=== PATIENT | female | born 2000 | race Caucasian/White ===

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

== ENCOUNTER 2021-12-20 18:15 | Inpatient (IN) | payer BC ==
[2021-12-20] MEDS ORDERED: IBUPROFEN 400 MG TAB PO STA (19:11)
[2021-12-20] MEDS ORDERED: ACETAMINOPHEN TAB 325 MG TAB PO STA (19:11)
[2021-12-20] MEDS ORDERED: SODIUM CHLORIDE 0.9% 1,000 ML IV STA (19:11)
--- NOTE | 2021-12-20 19:17 | ED ---
General Adult HPI - General Chief complaint: Shortness of Breath Stated complaint: SOB Time Seen by Provider: 12/20/21 19:00 Source: patient, family, RN notes reviewed, old records reviewed Mode of arrival: ambulatory Limitations: no limitations - History of Present Illness Initial comments: Physical well-appearing 21-year-old female that presents to the emergency room with complaints of cough, nausea and fever for 9 days. She had her tonsils removed 3 weeks ago. States that she went to follow up appointment with her ENT is complaining of some left-sided rib pain and cough was put her on Zithromax which she finished yesterday. Patient states she developed a worsening cough with fever and chills today. She did go to urgent care and they did an x-ray stating that she should come to the emergency room for evaluation for pneumonia. She states they tested her for influenza and was negative she does not believe she has coronavirus. She has had a history of asthma. She does take control pills. She is a nonsmoker. -: days(s) (1) Location: chest Radiation: non-radiation Severity scale (1-10): 6 Quality: constant Consistency: constant Improves with: none Worsens with: other (cough) Associated Symptoms: fever/chills, nausea/vomiting, shortness of breath Treatments Prior to Arrival: other (Urgent care) - Related Data Home Medications Medication Instructions Recorded Confirmed Azithromycin [Zithromax] 500 mg PO DAILY 12/20/21 12/20/21 Norgestimate-Ethinyl Estradiol 1 tab PO HS 12/20/21 12/20/21 [Sprintec 28 Day Tablet] Allergies Allergy/AdvReac Type Severity Reaction Status Date / Time No Known Allergies Allergy Verified 12/20/21 20:26 Review of Systems ROS Statement: Those systems with pertinent positive or pertinent negative responses have been documented in the HPI. ROS Other: All systems not noted in ROS Statement are negative. Past Medical History Past Medical History: Asthma History of Any Multi-Drug Resistant Organisms: None Reported Past Surgical History: Tonsillectomy Past Psychological History: No Psychological Hx Reported Smoking Status: Never smoker Past Alcohol Use History: Occasional Past Drug Use History: None Reported General Exam Limitations: no limitations General appearance: alert, in no apparent distress Head exam: Present: atraumatic, normocephalic, normal inspection Eye exam: Present: normal appearance. Absent: scleral icterus, conjunctival injection, periorbital swelling ENT exam: Present: normal exam, normal oropharynx, mucous membranes moist Expanded Throat exam: negative: tonsillar erythema, tonsillomegaly, tonsillar exudate, R peritonsillar mass, L peritonsillar mass Neck exam: Present: normal inspection, full ROM. Absent: tenderness, meningismus, lymphadenopathy, thyromegaly Respiratory exam: Present: decreased breath sounds (Diminished at bases). Absent: respiratory distress, wheezes, rales, rhonchi, stridor, chest wall tenderness, accessory muscle use Cardiovascular Exam: Present: tachycardia, normal heart sounds GI/Abdominal exam: Present: soft. Absent: distended, tenderness Extremities exam: Present: normal capillary refill. Absent: pedal edema Back exam: Present: normal inspection, full ROM. Absent: tenderness, CVA tenderness (R), CVA tenderness (L), rash noted Neurological exam: Present: alert, oriented X3, CN II-XII intact, normal gait Psychiatric exam: Present: anxious (Tearful) Skin exam: Present: warm, dry, intact, normal color. Absent: rash, cyanosis, diaphoretic, pallor Course Vital Signs 12/20/21 12/20/21 12/20/21 18:44 20:28 21:24 Temperature 103.2 F H 99.3 F Pulse Rate 142 H 107 H 96 Respiratory 22 20 Rate Blood Pressure 143/73 114/76 O2 Sat by Pulse 96 100 Oximetry EKG Findings - EKG Results: EKG: sinus rhythm (Ventricular rate of 95, IA interval 0.145, QRS 0.97, QTC 0.398) Medical Decision Making - Medical Decision Making 21-year-old well-appearing female presents with cough fever and nausea. She has had cough for 9 days. She was put on Z-Delon 5 days ago by her ENT for bronchitis which she finished yesterday. She is status post tonsillectomy 3 weeks ago with no complications. She does take control. She is a nonsmoker. She denies IV drug use. She denies any hemoptysis but does state she has occasional productive cough green in color. Chest x-ray shows no pleural effusion or focal consolidation. White blood cell count is 17, platelet count 634, and d-dimer is elevated at 1.52 CT angiogram of the chest shows no evidence of pulmonary embolism. There is consolidation in the left lower lobe with cavitation concerning for necrotizing pneumonia. Patient was started on vancomycin and Zosyn. She'll be admitted to the hospital with pulmonary consult. Consults to infectious disease. Oxygen saturation is 98% on room air, heart rate is 106. Case discussed with Dr. Wells who recommended vancomycin and Zosyn. - Lab Data Result diagrams: 12/20/21 19:45 12/20/21 19:45 Lab Results 12/20/21 12/20/21 12/20/21 Range/Units 19:45 19:45 19:45 WBC 17.3 H (3.8-10.6) k/uL RBC 4.69 (3.80-5.40) m/uL Hgb 12.9 (11.4-16.0) gm/dL Hct 39.7 (34.0-46.0) % MCV 84.6 (80.0-100.0) fL MCH 27.5 (25.0-35.0) pg MCHC 32.5 (31.0-37.0) g/dL RDW 12.6 (11.5-15.5) % Plt Count 634 H (150-450) k/uL MPV 6.7 Neutrophils % 81 % Lymphocytes % 13 % Monocytes % 4 % Eosinophils % 1 % Basophils % 0 % Neutrophils # 13.9 H (1.3-7.7) k/uL Lymphocytes # 2.3 (1.0-4.8) k/uL Monocytes # 0.8 (0-1.0) k/uL Eosinophils # 0.1 (0-0.7) k/uL Basophils # 0.1 (0-0.2) k/uL D-Dimer 1.52 H (<0.60) mg/L FEU Sodium 140 (137-145) mmol/L Potassium 4.6 (3.5-5.1) mmol/L Chloride 102 (98-107) mmol/L Carbon Dioxide 26 (22-30) mmol/L Anion Gap 12 mmol/L BUN 7 (7-17) mg/dL Creatinine 0.72 (0.52-1.04) mg/dL Est GFR (CKD-EPI)AfAm >90 (>60 ml/min/1.73 sqM) Est GFR (CKD-EPI)NonAf >90 (>60 ml/min/1.73 sqM) Glucose 99 (74-99) mg/dL Calcium 9.7 (8.4-10.2) mg/dL Magnesium 2.0 (1.6-2.3) mg/dL Total Bilirubin 0.8 (0.2-1.3) mg/dL AST 33 (14-36) U/L ALT 63 H (4-34) U/L Alkaline Phosphatase 108 (38-126) U/L Total Protein 8.0 (6.3-8.2) g/dL Albumin 4.3 (3.5-5.0) g/dL Disposition Clinical Impression: Elevated d-dimer, Necrotizing pneumonia Disposition: ADMITTED IP TO THIS HOSP Referrals: Marion Delgadillo MD [Primary Care Provider] - 1-2 days Decision Date: 12/20/21 Decision Time: 21:56
--- NOTE | 2021-12-20 19:55 | XR ---
EXAMINATION TYPE: XR chest 2V DATE OF EXAM: 12/20/2021 7:29 PM COMPARISON: 07/11/2009 TECHNIQUE: XR chest 2V Frontal and lateral views of the chest. CLINICAL INDICATION:Female, 21 years old with history of short of breath fever; FINDINGS: Lungs/Pleura: There is no evidence of pleural effusion, focal consolidation, or pneumothorax. Pulmonary vascularity: Unremarkable. Heart/mediastinum: Cardiomediastinal silhouette is unremarkable. Musculoskeletal: No acute osseous pathology. IMPRESSION: No acute cardiopulmonary disease/process.
[2021-12-20 20:16] LABS: Basophils # (A) 0.1 k/uL (0-0.2); Basophils % (A) 0 %; Eosinophils # (A) 0.1 k/uL (0-0.7); Eosinophils % (A) 1 %; HCT 39.7 % (34.0-46.0); HGB 12.9 gm/dL (11.4-16.0); Lymphocytes # (A) 2.3 k/uL (1.0-4.8); Lymphocytes % (A) 13 %; MCH 27.5 pg (25.0-35.0); MCHC 32.5 g/dL (31.0-37.0); MCV 84.6 fL (80.0-100.0); Mean Platelet Volume 6.7; Monocytes # (A) 0.8 k/uL (0-1.0); Monocytes % (A) 4 %; Neutrophils # (A) 13.9 k/uL (1.3-7.7); Neutrophils % (A) 81 %; Platelet Count 634 k/uL (150-450); RBC 4.69 m/uL (3.80-5.40); RDW 12.6 % (11.5-15.5); WBC 17.3 k/uL (3.8-10.6)
[2021-12-20 20:27] LABS: ALT 63 U/L (4-34); AST 33 U/L (14-36); African American GFR (CKD) >90 (>60 ml/min/1.73 sqM); Albumin 4.3 g/dL (3.5-5.0); Alkaline Phosphatase 108 U/L (38-126); Anion Gap 12 mmol/L; Blood Urea Nitrogen 7 mg/dL (7-17); Calcium 9.7 mg/dL (8.4-10.2); Carbon Dioxide 26 mmol/L (22-30); Chloride 102 mmol/L (98-107); Glucose 99 mg/dL (74-99); Non-African American GFR(CKD) >90 (>60 ml/min/1.73 sqM); Potassium 4.6 mmol/L (3.5-5.1); Sodium 140 mmol/L (137-145); Total Bilirubin 0.8 mg/dL (0.2-1.3)
--- NOTE | 2021-12-20 21:59 | CT ---
EXAMINATION TYPE: CT angio chest CT DLP: 217.4 mGycm, Automated exposure control for dose reduction was used. DATE OF EXAM: 12/20/2021 9:27 PM COMPARISON: . Chest radiograph from same day. CLINICAL INDICATION:Female, 21 years old with history of elevated dimer, chest pain , SOB; SOB, chest pain, fever, elevated d-dimer. TECHNIQUE/CONTRAST: CTA scan of the thorax is performed with IV Contrast, patient injected with 100 mL of Isovue 370, pul monary embolism protocol. MIP images are created and reviewed. FINDINGS: Pulmonary Artery: There is no evidence for a filling defect within the pulmonary vasculature to sugge st acute pulmonary embolism. The pulmonary artery is of normal size. Lungs/Pleura: Consolidation with cavitation gas present measuring 54 x 52 x 51 cm cavitation centrall y measuring 32 x 21 x 27 mm. Airway: Large airways are patent. Heart: Within normal limits for size.. Vasculature: No evidence of aortic aneurysm. Mediastinum: No gross evidence of adenopathy. Musculoskeletal: No acute osseous abnormalities Soft Tissues: Unremarkable. Lower neck: No significant findings. Upper Abdomen: Fatty infiltration of segment 4B of the liver. IMPRESSION: 1. No evidence of pulmonary embolism. 2. Consolidation within the left lower lobe with cavitation concerning for necrotizing pneumonia.
[2021-12-20] MEDS ORDERED: PIPERACILLIN-TAZOBACTAM 3.375 GM in SODIUM CHLORIDE 0.9% 100 ML IVPB ONE (22:00)
[2021-12-20] MEDS ORDERED: VANCOMYCIN 1,000 MG in SODIUM CHLORIDE 0.9% 250 ML IVPB ONE (22:00)
[2021-12-20] MEDS ORDERED: ONDANSETRON 4 MG/2 ML VIAL IVP PRN (22:07)
[2021-12-20] MEDS ORDERED: NALOXONE 0.4 MG/ML 1 ML VIAL IV PRN (22:07)
[2021-12-20] MEDS ORDERED: IBUPROFEN 400 MG TAB PO PRN (22:07)
[2021-12-20] MEDS ORDERED: ACETAMINOPHEN TAB 325 MG TAB PO PRN (22:07)
[2021-12-20] MEDS: SODIUM CHLORIDE 0.9% 1,000 ML IV SCH (22:27)
[2021-12-21] MEDS ORDERED: VANCOMYCIN IV PER PHARMACY 1 EACH MISC MISCELLANE PRN (00:03)
[2021-12-21] MEDS ORDERED: VANCOMYCIN 1,250 MG in SODIUM CHLORIDE 0.9% 250 ML IVPB SCH (09:00)
[2021-12-21] MEDS: AMPICILLIN-SULBACTAM 3 GM in SODIUM CHLORIDE 0.9% 100 ML IVPB SCH ×2 (12:55→18:29)
--- NOTE | 2021-12-21 15:37 | P.CNPUL ---
History of Present Illness Consult date: 12/21/21 Reason for consult: chest pain, pneumonia History of present illness: This is a 21-year-old female patient who is currently admitted for a left lung pneumonia. The patient is healthy. She underwent a tonsillectomy on outpatient basis under the care of Dr. Cortes approximately 3 weeks ago. The patient had recurrent tonsillitis and tonsillar quite enlarged and symptomatic and for that reason the decision was to undergo the tonsillectomy. Surgery was done without any major complications or any reported aspiration. The patient was discharged home. The patient following that, started developing some pain along the left side of the chest/rib cage and the pain was somewhat pleuritic in nature. The patient was given a course of Zithromax on outpatient basis which she finished. Subsequently, condition progressed and she started having more pain and she saw a chiropractor with a seminary ventilation of the rib cage. Patient developed worsening symptoms. She came into the emergency department for further evaluation. Chest x-ray showed a left lower lobe consolidation for that reason a CAT scan of the chest was done that showed an extensive area of consolidation involving the left lower lobe with some central hyperdensity, either cavitation or early abscess formation with some gas. This area is around 54 x 52 x 51 mm in size. Rest of the lungs are essentially clear. No evidence of any pulmonary embolism. The patient was given initially a combination of cefepime/Vancomycin and later patient was switched to Unasyn. She is on room air oxygen. She does have leukocytosis for now and the white cell count is 17.3. Platelet count is 634. D-dimer is 1.52. COVID 19 testing is been negative and the patient has been vaccinated. Review of Systems Constitutional: Reports fatigue Eyes: denies as per HPI, denies blurred vision, denies bulging eye, denies decreased vision, denies diplopia, denies discharge, denies dry eye, denies irritation, denies itching, denies pain, denies photophobia, denies loss of peripheral vision, denies loss of vision, denies tunnel vision/blind spots Ears: deny: decreased hearing, ear discharge, earache, tinnitus Ears, nose, mouth and throat: Reports as per HPI Breasts: absent: as per HPI, change in shape, gynecomastia, masses, nipple disch arge, pain, skin changes, swelling Cardiovascular: Reports chest pain Respiratory: Reports cough, Reports dyspnea Gastrointestinal: Reports as per HPI Genitourinary: Reports as per HPI Menstruation: Reports as per HPI Musculoskeletal: Reports as per HPI Musculoskeletal: absent: ankle pain, ankle stiffness, ankle swelling Integumentary: Reports as per HPI Neurological: Reports as per HPI Psychiatric: Reports as per HPI Endocrine: Reports as per HPI Allergic/Immunologic: Reports as per HPI Past Medical History Past Medical History: Asthma, Hyperlipidemia History of Any Multi-Drug Resistant Organisms: None Reported Past Surgical History: Tonsillectomy Additional Past Surgical History / Comment(s): Tonsillectomy 11/27/21 Past Anesthesia/Blood Transfusion Reactions: No Reported Reaction Past Psychological History: No Psychological Hx Reported Smoking Status: Never smoker Past Alcohol Use History: Occasional Past Drug Use History: None Reported - Past Family History Mother Additional Family Medical History / Comment(s): Family history of hyperlipidemia. Father Additional Family Medical History / Comment(s): No pertinent history Medications and Allergies Home Medications Medication Instructions Recorded Confirmed Type Azithromycin [Zithromax] 500 mg PO DAILY 12/20/21 12/20/21 History Norgestimate-Ethinyl Estradiol 1 tab PO HS 12/20/21 12/20/21 History [Sprintec 28 Day Tablet] Allergies Allergy/AdvReac Type Severity Reaction Status Date / Time No Known Allergies Allergy Verified 12/20/21 20:26 Physical Exam Vitals: Vital Signs Temp Pulse Pulse Resp BP BP Pulse Ox 12/21/21 12:00 99.1 F 114 H 18 122/80 96 12/21/21 08:00 98.6 F 87 16 121/81 97 12/21/21 04:18 98 12/21/21 03:41 97.7 F 98 18 127/87 97 12/21/21 02:29 98.9 F 95 18 123/76 99 12/20/21 23:14 93 16 125/73 99 12/20/21 21:24 96 100 12/20/21 20:28 99.3 F 107 H 20 114/76 12/20/21 18:44 103.2 F H 142 H 22 143/73 96 Intake and Output 12/21/21 12/21/21 12/21/21 06:59 14:59 22:59 Other: Voiding Method Toilet # Voids 1 Weight 57.6 kg The patient appeared well nourished and normally developed. Vital signs as documented. Head exam is unremarkable. No scleral icterus or corneal arcus noted. Neck is without jugular venous distension, thyromegaly, or carotid bruits. Carotid upstrokes are brisk bilaterally. Lungs are clear to auscultation and percussion. The breath sounds are diminished in left lung base along with some limited amount of crackles in the left basilar area Cardiac exam reveals the PMI to be normally sized and situated. Rhythm is regular. First and second heart sounds normal. No murmurs, rubs or gallops. Abdominal exam reveals normal bowel sounds, no masses, no organomegaly and no aortic enlargement. Extremities are nonedematous and both femoral and pedal pulses are normal.Examination of the skin revealed no evidence of significant rashes, suspicious appearing nevi or other concerning lesions.Neurologically, the patient is awake and alert and the patient does not have any focal neurological deficit. Cranial nerves are essentially intact. Results - Laboratory Findings CBC and BMP: 12/20/21 19:45 12/20/21 19:45 PT/INR, D-dimer D-Dimer 1.52 mg/L FEU (<0.60) H 12/20/21 19:45 Abnormal lab findings: Abnormal Labs 12/20/21 12/20/21 12/20/21 19:45 19:45 19:45 WBC 17.3 H Plt Count 634 H Neutrophils # 13.9 H D-Dimer 1.52 H ALT 63 H - Diagnostic Findings Chest x-ray: image reviewed CT scan - chest: image reviewed Assessment and Plan Plan: 1 acute/subacute left lower lobe pneumonia, necrotizing possibly cavitating with early abscess formation within the left lower lobe consolidation which is measur ing 5 cm in size and its largest dimension. There may be some early gas formation/early abscess formation within the left lower lobe. Highly suggestive of a gram-negative or anaerobic infection. Could be related to perioperative aspiration post tonsillectomy. Unlikely to be community-acquired. Unlikely to be staphylococcal or any other atypical microorganism. 2 acute leukocytosis secondary to above 3 acute pleuritic chest pain secondary to above 4 shortness of breath secondary to above 5 history of tonsillectomy performed approximately 3 weeks ago Plan Check pro calcitonin level Agree on IV Unasyn Sputum Gram stain and culture Obtain blood cultures Monitor clinically May need to have a repeat CAT scan of the chest within next 3-4 days. During this time, I would recommend IV antibiotic treatment for this patient who has an extensive left lung pneumonia. She may ultimately develop an abscess within the left lower lobe and this needs to be very closely monitored. No role for any immediate surgical or nonsurgical intervention at this point in time. The treatment is essentially medically with IV antibiotics for now. Consult ID. We'll continue to follow. Case was discussed with ENT. Case was discussed with the primary medical team.
[2021-12-21] MEDS ORDERED: CEFEPIME 2 GM in SODIUM CHLORIDE 0.9% 100 ML IVPB SCH (16:00)
[2021-12-21] MEDS: SODIUM CHLORIDE 0.9% 1,000 ML IV SCH (18:29)
[2021-12-21] MEDS: guaiFENesin 600 MG TABLET.ER PO SCH (18:30)
[2021-12-21] MEDS: ALBUTEROL NEBULIZED 2.5 MG/3 ML INHALATION PRN (20:48)
[2021-12-21] MEDS: MELATONIN 3 MG TABLET PO SCH (21:32)
[2021-12-21] MEDS: HEPARIN SODIUM,PORCINE/PF 5,000 UNIT/0.5 ML SYRINGE SQ SCH (21:32)
--- NOTE | 2021-12-21 22:26 | P.CONS ---
History of Present Illness - Reason for Consult Consult date: 12/21/21 Necrotizing Pneumonia Requesting physician: Marion Delgadillo - Chief Complaint left sided chest pain and cough x few days - History of Present Illness Patient is a 21-year-old female otherwise healthy who recently did have a tonsillectomy about 3 weeks ago for recurrent tonsillitis the patient started having a pain to the left side of the chest rib cage that have been going on for about a week patient mention that she did start chiropractor and seem to have some improvement with the pain patient also started having the cough which is moderate in intensity with occasional sputum production but no hemoptysis patient seem to have been treated in outpatient setting with the Zithromax however do not have any improvement with worsening of the pain describing to be sharp worse with taking deep breath and coughing intensity 6-7 out of 10 and no radiation patient presented to hospital on arrival to the ER the patient did have fever 103 degrees formulae patient was tachycardic however not hypoxic or need for supplemental oxygen he did have a white count of 17.3 w ith a left shift creatinine was normal ALT was mildly elevated Covid testing was negative patient did have a chest x-ray which was negative for acute cardiopulmonary disease subsequently she did have a CT angiogram of the chest no evidence of PE did shows consolidation of the left lower lobe with cavity concerning for necrotizing pneumonia patient received dose of Zosyn and vancomycin in the ER subsequently vancomycin was continued infectious disease was consulted for further management of antibiotic therapy Review of Systems Positive point has been mentioned in the HPI rest of the systems are negative Past Medical History Past Medical History: Asthma, Hyperlipidemia History of Any Multi-Drug Resistant Organisms: None Reported Past Surgical History: Tonsillectomy Additional Past Surgical History / Comment(s): Tonsillectomy 11/27/21 Past Anesthesia/Blood Transfusion Reactions: No Reported Reaction Past Psychological History: No Psychological Hx Reported Smoking Status: Never smoker Past Alcohol Use History: Occasional Past Drug Use History: None Reported - Past Family History Mother Additional Family Medical History / Comment(s): Family history of hyperlipid emia. Father Additional Family Medical History / Comment(s): No pertinent history Medications and Allergies Home Medications Medication Instructions Recorded Confirmed Type Azithromycin [Zithromax] 500 mg PO DAILY 12/20/21 12/20/21 History Norgestimate-Ethinyl Estradiol 1 tab PO HS 12/20/21 12/20/21 History [Sprintec 28 Day Tablet] Allergies Allergy/AdvReac Type Severity Reaction Status Date / Time No Known Allergies Allergy Verified 12/20/21 20:26 Physical Exam Vitals: Vital Signs Temp Pulse Pulse Resp BP BP Pulse Ox 12/21/21 08:00 98.6 F 87 16 121/81 97 12/21/21 04:18 98 12/21/21 03:41 97.7 F 98 18 127/87 97 12/21/21 02:29 98.9 F 95 18 123/76 99 12/20/21 23:14 93 16 125/73 99 12/20/21 21:24 96 100 12/20/21 20:28 99.3 F 107 H 20 114/76 12/20/21 18:44 103.2 F H 142 H 22 143/73 96 Intake and Output 12/20/21 12/21/21 12/21/21 22:59 06:59 14:59 Other: Voiding Method Toilet # Voids 1 Weight 56.699 kg 57.6 kg GENERAL DESCRIPTION: Young female lying in bed, no distress. No tachypnea or accessory muscle of respiration use. HEENT: Shows Pallor , no scleral icterus. Oral mucous membrane is dry. No pharyngeal erythema or thrush NECK: Trachea central, no thyromegaly. LUNGS: Unlabored breathing. Decreased breath sound at the base HEART: S1, S2, regular rate and rhythm. No loud murmur ABDOMEN: Soft, no tenderness , guarding or rigidity, no organomegaly EXTREMITIES: No edema of feet. SKIN: No rash, no masses palpable. NEUROLOGICAL: The patient is awake, alert, oriented x3, mood and affect normal. Results CBC & Chem 7: 12/20/21 19:45 12/20/21 19:45 Labs: Abnormal Lab Results - Last 24 Hours (Table) 12/20/21 12/20/21 12/20/21 Range/Units 19:45 19:45 19:45 WBC 17.3 H (3.8-10.6) k/uL Plt Count 634 H (150-450) k/uL Neutrophils # 13.9 H (1.3-7.7) k/uL D-Dimer 1.52 H (<0.60) mg/L FEU ALT 63 H (4-34) U/L Assessment and Plan (1) Necrotizing pneumonia Current Visit: Yes Status: Acute Code(s): J85.0 - GANGRENE AND NECROSIS OF LUNG SNOMED Code(s): 0128993 Plan: 1patient presented to hospital with sepsis in this patient who did have a fever tachycardia elevated white count sources left lower lobe necrotizing pneumonia had this patient recently did have a tonsillectomy and concern for possible aspiration/anaerobic pneumonia failing outpatient oral Zithromax therapy. 2we will try to obtain a sputum for Gram stain and culture 3discontinue cefepime and vancomycin 4Unasyn 3 g every 6 hours We will follow on clinical condition and cultures to further adjust medication if needed Thank you for this consultation will follow this patient along with you Time with Patient: Greater than 30
[2021-12-22] MEDS: AMPICILLIN-SULBACTAM 3 GM in SODIUM CHLORIDE 0.9% 100 ML IVPB SCH ×4 (00:15→20:15)
[2021-12-22] MEDS: SODIUM CHLORIDE 0.9% 1,000 ML IV SCH ×2 (06:18→20:18)
[2021-12-22] MEDS: FAMOTIDINE 20 MG TAB PO SCH (08:20)
[2021-12-22] MEDS: HEPARIN SODIUM,PORCINE/PF 5,000 UNIT/0.5 ML SYRINGE SQ SCH ×2 (08:20→08:22)
[2021-12-22] MEDS: guaiFENesin 600 MG TABLET.ER PO SCH ×2 (08:20→20:15)
--- NOTE | 2021-12-22 10:42 | P.PN ---
Subjective Progress Note Date: 12/22/21 HISTORY OF PRESENT ILLNESS 12/22: Patient has been seen by infectious disease with recommendations for Unasyn 3 g every 6 hours, sputum culture. Patient was able to provide sputum s pecimen this morning. Patient is also seen by pulmonary medicine and patient may need repeat CAT scan of the chest within the next 3-4 days, plan to continue IV antibiotics. Patient states that she has a little cough, shortness of breath is improved. She denies having any further fever or chills. She has been ambulating in the hallway frequently and requesting that heparin subcu be discontinued which we will do. D-dimer was elevated but CTA of the chest was negative for pulmonary embolism. Patient is reaching 1500+ on incentive spirometry and doing frequently. She is scheduled for mid line placement today. Patient is mildly tachycardic at 106 and on IV fluids and patient agrees to in crease oral fluid intake. Flutter valve and Pulmicort added. Sed rate is 94, rheumatoid factor normal at 13, hCG nondetected. Legionella negative. Pending: NATAN, p-ANCA, mycoplasma, repeat CBC and BMP ordered for tomorrow. REVIEW OF SYSTEMS Constitutional: No fever, no chills, no night sweats. No weight change. No weakness, fatigue or lethargy. No daytime sleepiness. EENT: No headache. No blurred vision or double vision, no loss of vision. No loss of Hearing, no ringing in the ears, no dizziness. No nasal drainage or congestion. No epistaxis. No sore throat. Lungs: Denies shortness of breath, occasional cough, minimal sputum production. No wheezing. Cardiovascular: No chest pain, no lower extremity edema. No palpitations. No paroxysmal nocturnal dyspnea. No orthopnea. No lightheadedness or dizziness. No syncopal episodes. Abdominal: No abdominal pain. No nausea, vomiting. No diarrhea. No constipation. No bloody or tarry stools. No loss of appetite. Genitourinary: No dysuria, increased frequency, urgency. No urinary retention. Musculoskeletal: No myalgias. No muscle weakness, no gait dysfunction, no frequent falls. No back pain. No neck pain. Integumentary: No wounds, no lesions. No rash or pruritus. No unusual bruising. No change in hair or nails. Neurologic: No aphasia. No facial droop. No change in mentation. No head injury. No headache. No paralysis. No paresthesia. Psychiatric: No depression. No anxiety. No mood swings. Endocrine: No abnormal blood sugars. No weight change. PHYSICAL EXAMINATION Gen: This is a 21-year-old female. She is resting in bed and appears to be in no acute distress. No respiratory distress noted. Patient's mother is at bedside HEENT: Head is atraumatic, normocephalic. Pupils equal, round. Sclerae is anicteric. NECK: Supple. No JVD. No lymphadenopathy. No thyromegaly. LUNGS: Diminished in the left lung, no wheezing. No intercostal retractions. No accessory muscle usage. HEART: Regular rate and rhythm. No murmur. ABDOMEN: Soft. Bowel sounds are present. No masses. No tenderness. EXTREMITIES: No pedal edema. No calf tenderness. Dorsalis pedis +2 bilaterally. NEUROLOGICAL: Patient is awake, alert and oriented x3. Cranial nerves 2 through 12 are grossly intact. ASSESSMENT AND PLAN 1. Acute left lower lobe pneumonia, necrotizing possibly cavitating with early abscess formation in the left lower lobe. Consult with pulmonary medicine and infectious disease are appreciated. Patient is on Unasyn 3 g IV piggyback every 6 hours, await sputum culture report. Continue patient on albuterol nebulizer treatment 4 times daily as needed, and Pulmicort 0.5 mg twice daily, flutter valve, continue incentive spirometry. Patient is ordered for midline today. 2. Sepsis secondary to acute left lower lobe pneumonia. Continue treatment as in #1. 3. History of tonsillectomy 3 weeks ago. 4. Elevated d-dimer. CTA negative for pulmonary embolism. 5. Tachycardia secondary to sepsis. Continue IV fluids, decrease to 75 mL per hour. 6. GI prophylaxis. Protonix daily. 7. DVT prophylaxis. Discontinue heparin subcu and continue ARIANA hose and add SCDs. DISCHARGE PLAN Home. Impression and plan of care have been directed as dictated by the signing physician. Lesvia Velazquez nurse practitioner acting as scribe for signing physician. Objective - Vital Signs Vital signs: Vital Signs Temp 98 F 12/22/21 08:00 Pulse 106 H 12/22/21 08:00 Resp 18 12/22/21 08:00 BP 132/75 12/22/21 08:00 Pulse Ox 97 12/22/21 08:00 Intake & Output 12/21/21 12/22/21 12/22/21 18:59 06:59 18:59 Intake Total 590 100 118 Balance 590 100 118 Intake: Intake, IV Titration 350 100 Amount Ampicillin-Sulbactam 3 gm 100 100 In Sodium Chloride 0.9% 100 ml @ 200 mls/hr IVPB Q6H [facility] Rx#:[id number] Vancomycin 1,250 mg In 250 Sodium Chloride 0.9% 250 ml @ 125 mls/hr IVPB Q12H [facility] Rx#:[id number] Oral 240 118 Other: Voiding Method Toilet # Voids 1 1 - Labs CBC & Chem 7: 12/20/21 19:45 12/20/21 19:45 Labs: Abnormal Lab Results - Last 24 Hours (Table) 12/21/21 Range/Units 14:57 ESR 94 H (0-20) mm/hr Microbiology - Last 24 Hours (Table) 12/20/21 22:00 Blood Culture - Preliminary Blood No Growth after 24 hours 12/20/21 19:35 Blood Culture - Preliminary Blood No Growth after 24 hours
--- NOTE | 2021-12-22 16:57 | P.PN ---
Subjective Progress Note Date: 12/22/21 Principal diagnosis: Acute left lower lobe necrotizing pneumonia/lung abscess. This is a 21-year-old female patient who is currently admitted for a left lung pneumonia. The patient is healthy. She underwent a tonsillectomy on outpatient basis under the care of Dr. Cortes approximately 3 weeks ago. The patient had recurrent tonsillitis and tonsillar quite enlarged and symptomatic and for that reason the decision was to undergo the tonsillectomy. Surgery was done without any major complications or any reported aspiration. The patient was discharged home. The patient following that, started developing some pain along the left side of the chest/rib cage and the pain was somewhat pleuritic in nature. The patient was given a course of Zithromax on outpatient basis which she finished. Subsequently, condition progressed and she started having more pain and she saw a chiropractor with a seminary ventilation of the rib cage. Patient developed worsening symptoms. She came into the emergency department for further evaluation. Chest x-ray showed a left lower lobe consolidation for that reason a CAT scan of the chest was done that showed an extensive area of consolidation involving the left lower lobe with some central hyperdensity, either cavitation or early abscess formation with some gas. This area is around 54 x 52 x 51 mm in size. Rest of the lungs are essentially clear. No evidence of any pulmonary embolism. The patient was given initially a combination of cefepime/Vancomycin and later patient was switched to Unasyn. She is on room air oxygen. She does have leukocytosis for now and the white cell count is 17.3. Platelet count is 634. D-dimer is 1.52. COVID 19 testing is been negative and the patient has been vaccinated. Reevaluated today on 12/22/21, patient is feeling better, continues to have intermittent cough but no fever, cough is productive with greenish phlegm. Sputum cultures are pending Gram stain is nondiagnostic patient is on Unasyn. She is being followed by infectious disease on the case, and the patient may or may not require a PICC line placement for IV antibiotics on a long-term basis. In the meantime the patient is clinically responding to present treatment. Her last WBC count was 17.3 she had a sed rate of 94 and she had a d-dimer of 1.52. Legionella antigen is negative Objective - Vital Signs Vital signs: Vital Signs Temp 98.2 F 12/22/21 12:00 Pulse 94 12/22/21 12:00 Resp 18 12/22/21 12:00 BP 115/75 12/22/21 12:00 Pulse Ox 95 12/22/21 12:00 Intake & Output 12/21/21 12/22/21 12/22/21 18:59 06:59 18:59 Intake Total 590 100 358 Balance 590 100 358 Intake: Intake, IV Titration 350 100 Amount Ampicillin-Sulbactam 3 gm 100 100 In Sodium Chloride 0.9% 100 ml @ 200 mls/hr IVPB Q6H [facility] Rx#:[id number] Vancomycin 1,250 mg In 250 Sodium Chloride 0.9% 250 ml @ 125 mls/hr IVPB Q12H [facility] Rx#:[id number] Oral 240 358 Other: Voiding Method Toilet # Voids 1 1 - Exam Physical Exam: Revealed a 21-year-old female in no distress Head: Atraumatic normocephalic HEENT:[Neck is supple.] [No neck masses.] [No thyromegaly.] [No JVD.] Chest: [Clear throughout, no crackles, no rhonchi, no wheezes.] Cardiac Exam: [Normal S1 and S2, no S3 gallop, no murmur.] Abdomen: [Soft, nontender, no megaly, no rebound, no guarding, normal bowel sounds.] Extremities: [No clubbing, no edema, no cyanosis.] Neurological Exam: [No focal neurologic deficit.] Alert oriented 3 Psychiatric: Normal mood affect and normal mental status examination. Skin: No rashes - Labs CBC & Chem 7: 12/20/21 19:45 12/20/21 19:45 Labs: Microbiology - Last 24 Hours (Table) 12/22/21 06:15 Gram Stain - Preliminary Sputum Sputum Culture - Preliminary 12/20/21 22:00 Blood Culture - Preliminary Blood No Growth after 24 hours 12/20/21 19:35 Blood Culture - Preliminary Blood No Growth after 24 hours Assessment and Plan Assessment: Impression: Acute necrotizing pneumonia/lung abscess Acute leukocytosis secondary to above Pleuritic chest pain secondary to above History of tonsillectomy 3 weeks prior to this presentation. Recommendation: Continue Unasyn Awaiting final culture on the sputum Blood cultures are nondiagnostic, so far are negative. Repeat CBC Consider PICC line placement for long-term IV antibiotics Consider repeat CT of the chest next week possibly on outpatient basis. In the meantime continue antibiotics Discussed her condition with the family at bedside Time with Patient: Less than 30
[2021-12-22] MEDS: ALBUTEROL NEBULIZED 2.5 MG/3 ML INHALATION PRN (20:22)
[2021-12-22] MEDS: BUDESONIDE 0.5 MG/2 ML NEBU INHALATION SCH (20:22)
--- NOTE | 2021-12-22 22:17 | P.PN ---
Subjective Progress Note Date: 12/22/21 Principal diagnosis: Pneumonia Patient is a 21-year-old female presented to hospital with left lower chest pleuritic chest pain, patient did have evidence of necrotizing pneumonia left lower lobe in this patient was recently did have a tonsillectomy and concern for possible aspiration pneumonia. On today's evaluation that is 12/22/2021, the patient fever has resolved, patient seemed having problem with getting IV access, the patient denies having any worsening shortness of breath currently and will be patient did did have a cough and is bringing up some sputum and no hemoptysis no nausea no vomiting. no diarrhea Objective - Vital Signs Vital signs: Vital Signs Temp 98 F 12/22/21 08:00 Pulse 106 H 12/22/21 08:00 Resp 18 12/22/21 08:00 BP 132/75 12/22/21 08:00 Pulse Ox 97 12/22/21 08:00 Intake & Output 12/21/21 12/22/21 12/22/21 18:59 06:59 18:59 Intake Total 590 100 118 Balance 590 100 118 Intake: Intake, IV Titration 350 100 Amount Ampicillin-Sulbactam 3 gm 100 100 In Sodium Chloride 0.9% 100 ml @ 200 mls/hr IVPB Q6H [facility] Rx#:[id number] Vancomycin 1,250 mg In 250 Sodium Chloride 0.9% 250 ml @ 125 mls/hr IVPB Q12H [facility] Rx#:[id number] Oral 240 118 Other: Voiding Method Toilet # Voids 1 1 - Exam GENERAL DESCRIPTION: Young female lying in bed in no distress RESPIRATORY SYSTEM: Unlabored breathing , decreased breath sounds at bases HEART: S1 S2 regular rate and rhythm , ABDOMEN: Soft , no tenderness EXTREMITIES: No edema feet - Labs CBC & Chem 7: 12/20/21 19:45 12/20/21 19:45 Labs: Abnormal Lab Results - Last 24 Hours (Table) 12/21/21 Range/Units 14:57 ESR 94 H (0-20) mm/hr Microbiology - Last 24 Hours (Table) 12/22/21 06:15 Sputum Culture - Preliminary Sputum 12/20/21 22:00 Blood Culture - Preliminary Blood No Growth after 24 hours 12/20/21 19:35 Blood Culture - Preliminary Blood No Growth after 24 hours Assessment and Plan (1) Necrotizing pneumonia Current Visit: Yes Status: Acute Code(s): J85.0 - GANGRENE AND NECROSIS OF LUNG SNOMED Code(s): 9666526 Plan: 1patient presented to hospital with sepsis in this patient who did have a fever tachycardia elevated white count sources left lower lobe necrotizing pneumonia had this patient recently did have a tonsillectomy and concern for possible aspiration/anaerobic pneumonia failing outpatient oral Zithromax therapy. 2 sputum for Gram stain and culture has been obtained and will be followed 3patient to continue with Unasyn 3 g every 6 hours, more likely will benefit from IV antibiotics in outpatient setting in view of her extensive pneumonia Time with Patient: Less than 30
[2021-12-22] MEDS: MELATONIN 3 MG TABLET PO SCH (22:32)
[2021-12-23] MEDS: AMPICILLIN-SULBACTAM 3 GM in SODIUM CHLORIDE 0.9% 100 ML IVPB SCH ×4 (00:33→19:10)
[2021-12-23] MEDS: SODIUM CHLORIDE 0.9% 1,000 ML IV SCH ×2 (00:36→08:21)
[2021-12-23] MEDS: PANTOPRAZOLE 40 MG TABLET PO SCH (06:24)
[2021-12-23 08:01] LABS: African American GFR (CKD) >90 (>60 ml/min/1.73 sqM); Anion Gap 9 mmol/L; Blood Urea Nitrogen 7 mg/dL (7-17); Calcium 8.9 mg/dL (8.4-10.2); Carbon Dioxide 23 mmol/L (22-30); Chloride 106 mmol/L (98-107); Glucose 99 mg/dL (74-99); HCT 33.7 % (34.0-46.0); HGB 11.1 gm/dL (11.4-16.0); Hypochromasia Slight; MCH 27.9 pg (25.0-35.0); MCV 84.5 fL (80.0-100.0); Mean Platelet Volume 6.9; Non-African American GFR(CKD) >90 (>60 ml/min/1.73 sqM); Platelet Count 569 k/uL (150-450); Potassium 4.3 mmol/L (3.5-5.1); RBC 3.98 m/uL (3.80-5.40); RDW 12.9 % (11.5-15.5); Sodium 138 mmol/L (137-145); WBC 11.3 k/uL (3.8-10.6)
[2021-12-23] MEDS: guaiFENesin 600 MG TABLET.ER PO SCH ×2 (08:21→20:28)
[2021-12-23] MEDS: FAMOTIDINE 20 MG TAB PO SCH (08:21)
[2021-12-23] MEDS ORDERED: ALPRAZolam 0.25 MG TAB PO STA (08:32)
--- NOTE | 2021-12-23 09:21 | P.PN ---
Subjective Progress Note Date: 12/23/21 HISTORY OF PRESENT ILLNESS 12/22: Patient has been seen by infectious disease with recommendations for Unasyn 3 g every 6 hours, sputum culture. Patient was able to provide sputum s pecimen this morning. Patient is also seen by pulmonary medicine and patient may need repeat CAT scan of the chest within the next 3-4 days, plan to continue IV antibiotics. Patient states that she has a little cough, shortness of breath is improved. She denies having any further fever or chills. She has been ambulating in the hallway frequently and requesting that heparin subcu be discontinued which we will do. D-dimer was elevated but CTA of the chest was negative for pulmonary embolism. Patient is reaching 1500+ on incentive spirometry and doing frequently. She is scheduled for mid line placement today. Patient is mildly tachycardic at 106 and on IV fluids and patient agrees to in crease oral fluid intake. Flutter valve and Pulmicort added. Sed rate is 94, rheumatoid factor normal at 13, hCG nondetected. Legionella negative. Pending: NATAN, p-ANCA, mycoplasma, repeat CBC and BMP ordered for tomorrow. 12/23: Patient has remained afebrile greater than 48 hours, heart rate 90-101, blood pressure 118/55, pulse ox 90% on room air. medical billing clerk is sinus rhythm. Sputum culture is in progress. Blood culture no growth at 48 hours 2 specimens. Repeat blood work reveals WBC 11.3, hemoglobin 11.1, platelet count of 169. Electrolytes and renal function are normal. Patient did not have IV access yesterday and multiple attempts were made to obtain midline. Dr. boateng is indicated need for PICC line with outpatient IV antibiotics. Double-lumen PICC line will be ordered now. She is continued on Unasyn. REVIEW OF SYSTEMS Constitutional: No fever, no chills, no night sweats. No weight change. No weakness, fatigue or lethargy. No daytime sleepiness. EENT: No headache. No blurred vision or double vision, no loss of vision. No loss of Hearing, no ringing in the ears, no dizziness. No nasal drainage or congestion. No epistaxis. No sore throat. Lungs: Denies shortness of breath, occasional cough, minimal sputum production. No wheezing. Cardiovascular: No chest pain, no lower extremity edema. No palpitations. No paroxysmal nocturnal dyspnea. No orthopnea. No lightheadedness or dizziness. No syncopal episodes. Abdominal: No abdominal pain. No nausea, vomiting. No diarrhea. No constipation. No bloody or tarry stools. No loss of appetite. Genitourinary: No dysuria, increased frequency, urgency. No urinary retention. Musculoskeletal: No myalgias. No muscle weakness, no gait dysfunction, no frequent falls. No back pain. No neck pain. Integumentary: No wounds, no lesions. No rash or pruritus. No unusual bruising. No change in hair or nails. Neurologic: No aphasia. No facial droop. No change in mentation. No head injury. No headache. No paralysis. No paresthesia. Psychiatric: No depression. No anxiety. No mood swings. Endocrine: No abnormal blood sugars. No weight change. PHYSICAL EXAMINATION Gen: This is a 21-year-old female. She is resting in bed and appears to be in no acute distress. No respiratory distress noted. Patient's mother is at bedside HEENT: Head is atraumatic, normocephalic. Pupils equal, round. Sclerae is anicteric. NECK: Supple. No JVD. No lymphadenopathy. No thyromegaly. LUNGS: Diminished in the left lung, no wheezing. No intercostal retractions. No accessory muscle usage. HEART: Regular rate and rhythm. No murmur. ABDOMEN: Soft. Bowel sounds are present. No masses. No tenderness. EXTREMITIES: No pedal edema. No calf tenderness. Dorsalis pedis +2 bilaterally. NEUROLOGICAL: Patient is awake, alert and oriented x3. Cranial nerves 2 through 12 are grossly intact. ASSESSMENT AND PLAN 1. Acute left lower lobe pneumonia, necrotizing possibly cavitating with early abscess formation in the left lower lobe. Consult with pulmonary medicine and infectious disease are appreciated. Patient is on Unasyn 3 g IV piggyback every 6 hours, await sputum culture report. Continue patient on albuterol nebulizer treatment 4 times daily as needed, and Pulmicort 0.5 mg twice daily, flutter valve, continue incentive spirometry. Patient is ordered for double-lumen PICC line today. 2. Sepsis secondary to acute left lower lobe pneumonia. Continue treatment as in #1. 3. History of tonsillectomy 3 weeks ago. 4. Elevated d-dimer. CTA negative for pulmonary embolism. 5. Tachycardia secondary to sepsis. Continue IV fluids, decrease to 75 mL per hour. 6. GI prophylaxis. Protonix daily. 7. DVT prophylaxis. Continue ARIANA hose and SCDs, continue frequent ambulation. DISCHARGE PLAN Home with outpatient antibiotic. Impression and plan of care have been directed as dictated by the signing physician. Lesvia Velazquez nurse practitioner acting as scribe for signing physic marty. Objective - Vital Signs Vital signs: Vital Signs Temp 98.1 F 12/23/21 04:00 Pulse 101 H 12/23/21 04:00 Resp 18 12/23/21 04:00 BP 118/55 12/23/21 04:00 Pulse Ox 98 12/23/21 04:00 Intake & Output 12/22/21 12/23/21 12/23/21 18:59 06:59 18:59 Intake Total 358 910 Balance 358 910 Intake: Intake, IV Titration 550 Amount Ampicillin-Sulbactam 3 gm 200 In Sodium Chloride 0.9% 100 ml @ 200 mls/hr IVPB Q6H [facility] Rx#:[id number] Sodium Chloride 0.9% 1, 100 000 ml @ 100 mls/hr IV . Q10H [facility] Rx#:[id number] Sodium Chloride 0.9% 1, 250 000 ml @ 75 mls/hr IV . [id number] [facility] Rx#:[id number] Oral 358 360 Other: # Voids 1 2 - Labs CBC & Chem 7: 12/23/21 06:10 12/23/21 06:10 Labs: Microbiology - Last 24 Hours (Table) 12/20/21 22:00 Blood Culture - Preliminary Blood No Growth after 48 hours 12/20/21 19:35 Blood Culture - Preliminary Blood No Growth after 48 hours 12/22/21 06:15 Gram Stain - Preliminary Sputum Sputum Culture - Preliminary
[2021-12-23] MEDS: BUDESONIDE 0.5 MG/2 ML NEBU INHALATION SCH ×2 (09:30→19:16)
--- NOTE | 2021-12-23 12:02 | P.PN ---
Subjective Progress Note Date: 12/23/21 Principal diagnosis: Acute left lower lobe necrotizing pneumonia/lung abscess. This is a 21-year-old female patient who is currently admitted for a left lung pneumonia. The patient is healthy. She underwent a tonsillectomy on outpatient basis under the care of Dr. Cortes approximately 3 weeks ago. The patient had recurrent tonsillitis and tonsillar quite enlarged and symptomatic and for that reason the decision was to undergo the tonsillectomy. Surgery was done without any major complications or any reported aspiration. The patient was discharged home. The patient following that, started developing some pain along the left side of the chest/rib cage and the pain was somewhat pleuritic in nature. The patient was given a course of Zithromax on outpatient basis which she finished. Subsequently, condition progressed and she started having more pain and she saw a chiropractor with a seminary ventilation of the rib cage. Patient developed worsening symptoms. She came into the emergency department for further evaluation. Chest x-ray showed a left lower lobe consolidation for that reason a CAT scan of the chest was done that showed an extensive area of consolidation involving the left lower lobe with some central hyperdensity, either cavitation or early abscess formation with some gas. This area is around 54 x 52 x 51 mm in size. Rest of the lungs are essentially clear. No evidence of any pulmonary embolism. The patient was given initially a combination of cefepime/Vancomycin and later patient was switched to Unasyn. She is on room air oxygen. She does have leukocytosis for now and the white cell count is 17.3. Platelet count is 634. D-dimer is 1.52. COVID 19 testing is been negative and the patient has been vaccinated. Reevaluated today on 12/22/21, patient is feeling better, continues to have intermittent cough but no fever, cough is productive with greenish phlegm. Sputum cultures are pending Gram stain is nondiagnostic patient is on Unasyn. She is being followed by infectious disease on the case, and the patient may or may not require a PICC line placement for IV antibiotics on a long-term basis. In the meantime the patient is clinically responding to present treatment. Her last WBC count was 17.3 she had a sed rate of 94 and she had a d-dimer of 1.52. Legionella antigen is negative Reevaluated today on 12/23/21, patient continues to do well, patient is scheduled to have a PICC line placed today. No fever, no shortness of breath, no chest pain, patient continues to have intermittent productive cough. Sputum cultures have been nondiagnostic. WBC count today is 11.3 hemoglobin 11.1 electrolytes are normal. Objective - Vital Signs Vital signs: Vital Signs Temp 98.1 F 12/23/21 07:30 Pulse 104 H 12/23/21 09:38 Resp 18 12/23/21 07:30 BP 137/76 12/23/21 07:30 Pulse Ox 98 12/23/21 07:30 Intake & Output 12/22/21 12/23/21 12/23/21 18:59 06:59 18:59 Intake Total 358 910 118 Balance 358 910 118 Intake: Intake, IV Titration 550 Amount Ampicillin-Sulbactam 3 gm 200 In Sodium Chloride 0.9% 100 ml @ 200 mls/hr IVPB Q6H [facility] Rx#:[id number] Sodium Chloride 0.9% 1, 100 000 ml @ 100 mls/hr IV . Q10H [facility] Rx#:[id number] Sodium Chloride 0.9% 1, 250 000 ml @ 75 mls/hr IV . [id number] [facility] Rx#:[id number] Oral 358 360 118 Other: # Voids 1 2 - Exam Physical Exam: Revealed a 21-year-old female in no distress Head: Atraumatic normocephalic HEENT:[Neck is supple.] [No neck masses.] [No thyromegaly.] [No JVD.] Chest: [Clear throughout, no crackles, no rhonchi, no wheezes.] Cardiac Exam: [Normal S1 and S2, no S3 gallop, no murmur.] Abdomen: [Soft, nontender, no megaly, no rebound, no guarding, normal bowel sounds.] Extremities: [No clubbing, no edema, no cyanosis.] Neurological Exam: [No focal neurologic deficit.] Alert oriented 3 Psychiatric: Normal mood affect and normal mental status examination. Skin: No rashes - Labs CBC & Chem 7: 12/23/21 06:10 12/23/21 06:10 Labs: Abnormal Lab Results - Last 24 Hours (Table) 12/23/21 Range/Units 06:10 WBC 11.3 H (3.8-10.6) k/uL Hgb 11.1 L (11.4-16.0) gm/dL Hct 33.7 L (34.0-46.0) % Plt Count 569 H (150-450) k/uL Microbiology - Last 24 Hours (Table) 12/22/21 06:15 Gram Stain - Preliminary Sputum Sputum Culture - Preliminary 12/20/21 22:00 Blood Culture - Preliminary Blood No Growth after 48 hours 12/20/21 19:35 Blood Culture - Preliminary Blood No Growth after 48 hours Assessment and Plan Assessment: Impression: Acute necrotizing pneumonia/lung abscess Acute leukocytosis secondary to above, resolving Pleuritic chest pain secondary to above, resolved History of tonsillectomy 3 weeks prior to this presentation. Recommendation: Agree with double-lumen PICC line placement Continue Unasyn Chest x-ray in a.m. Consider repeat CT of the chest next week possibly on outpatient basis. In the meantime continue antibiotics Discussed her condition with the family at bedside Time with Patient: Less than 30
[2021-12-23] MEDS ORDERED: LIDOCAINE 1% INJ 10MG/ML (20 ML MDV) SQ ONE (14:43)
[2021-12-23 14:53] LABS: C-ANCA <1:20 Titer (<1:20)
--- NOTE | 2021-12-23 15:27 | IR ---
PICC LINE PLACEMENT: HISTORY: Infection requiring long-term antibiotic therapy PROCEDURE: Ultrasound and fluoroscopic guidance of PICC line placement. COMPLICATIONS: None ANESTHESIA: 1. 1% Lidocaine locally. FINDINGS/TECHNIQUE: The procedure was explained to the patient. The risks, complications, benefits and alternatives were discussed and any questions were answered. Informed consent was obtained. The patient was placed supine on the fluoroscopic table and prepped and draped in the usual sterile fash ion. Utilizing a 21 gauge needle and sonographic and fluoroscopic guidance, access in the left basi lic vein was achieved and there is placement of a 0.018 guidewire. The vein is patent. A 4-F sheath was placed over the guidewire. The guidewire and dilator were removed and a 4-F. PICC line was plac ed through the sheath with the tip at the level of the SVC. The sheath was removed, the catheter was flushed and sutured into position. The patient was stable throughout the procedure and remained sta ble upon discharge from the Department of Radiology. The vein puncture was patent under ultrasound. A teague scale image was obtained to document patency of the vein punctured. All elements of the maximal barrier technique were utilized. FLUOROSCOPY TIME: 0.6 minutes and 1 images submitted IMPRESSION: Successful PICC line placement under ultrasound and fluoroscopic guidance.
--- NOTE | 2021-12-23 17:47 | XR ---
EXAMINATION TYPE: XR chest 2V DATE OF EXAM: 12/23/2021 5:29 PM COMPARISON:Chest radiographs from 11/22/2021 TECHNIQUE: XR chest 2V Frontal and lateral views of the chest. CLINICAL INDICATION:Female, 21 years old with history of Left lower lobe pneumonia; FINDINGS: Lungs/Pleura: Left lower lobe airspace opacities again seen. Cavitation less well appreciated on this exam. Appears to be improved aeration compared to prior radiograph. No evidence of pneumothorax or p leural effusion. Pulmonary vascularity: Unremarkable. Heart/mediastinum: Cardiomediastinal silhouette is unremarkable. Musculoskeletal: No acute osseous pathology. Lines: Left PICC line with tip at the superior vena cava and left brachiocephalic vein. IMPRESSION: 1. Improved aeration of the left lower lobe airspace disease. Persistent opacities are visualized. C avitation is better appreciated on CT. 2. Left PICC with tip in appropriate position.
[2021-12-23] MEDS: MELATONIN 3 MG TABLET PO SCH (22:20)
--- NOTE | 2021-12-23 23:12 | P.PN ---
Subjective Progress Note Date: 12/23/21 Principal diagnosis: Pneumonia Patient is a 21-year-old female presented to hospital with left lower chest pleuritic chest pain, patient did have evidence of necrotizing pneumonia left lower lobe in this patient was recently did have a tonsillectomy and concern for possible aspiration pneumonia. On today's evaluation that is 12/23/2021, the patient is afebrile today, patient is breathing more comfortably on room air, the patient denies any chest pain. Denies any nausea no vomiting no abdominal pain no diarrhea Objective - Vital Signs Vital signs: Vital Signs Temp 98.1 F 12/23/21 04:00 Pulse 104 H 12/23/21 09:38 Resp 18 12/23/21 04:00 BP 118/55 12/23/21 04:00 Pulse Ox 98 12/23/21 04:00 Intake & Output 12/22/21 12/23/21 12/23/21 18:59 06:59 18:59 Intake Total 358 910 118 Balance 358 910 118 Intake: Intake, IV Titration 550 Amount Ampicillin-Sulbactam 3 gm 200 In Sodium Chloride 0.9% 100 ml @ 200 mls/hr IVPB Q6H [facility] Rx#:[id number] Sodium Chloride 0.9% 1, 100 000 ml @ 100 mls/hr IV . Q10H [facility] Rx#:[id number] Sodium Chloride 0.9% 1, 250 000 ml @ 75 mls/hr IV . [id number] [facility] Rx#:[id number] Oral 358 360 118 Other: # Voids 1 2 - Exam GENERAL DESCRIPTION: Young female lying in bed in no distress RESPIRATORY SYSTEM: Unlabored breathing , decreased breath sounds at bases HEART: S1 S2 regular rate and rhythm , ABDOMEN: Soft , no tenderness EXTREMITIES: No edema feet - Labs CBC & Chem 7: 12/23/21 06:10 12/23/21 06:10 Labs: Abnormal Lab Results - Last 24 Hours (Table) 12/23/21 Range/Units 06:10 WBC 11.3 H (3.8-10.6) k/uL Hgb 11.1 L (11.4-16.0) gm/dL Hct 33.7 L (34.0-46.0) % Plt Count 569 H (150-450) k/uL Microbiology - Last 24 Hours (Table) 12/20/21 22:00 Blood Culture - Preliminary Blood No Growth after 48 hours 12/20/21 19:35 Blood Culture - Preliminary Blood No Growth after 48 hours 12/22/21 06:15 Gram Stain - Preliminary Sputum Sputum Culture - Preliminary Assessment and Plan (1) Necrotizing pneumonia Current Visit: Yes Status: Acute Code(s): J85.0 - GANGRENE AND NECROSIS OF LUNG SNOMED Code(s): 7275451 Plan: 1patient presented to hospital with sepsis in this patient who did have a fever tachycardia elevated white count sources left lower lobe necrotizing pneumonia had this patient recently did have a tonsillectomy and concern for possible aspiration/anaerobic pneumonia failing outpatient oral Zithromax therapy. 2 sputum for Gram stain and culture has been obtained and are currently pending 3patient to continue with Unasyn 3 g every 6 hours, patient will get a PICC line and plan for Unasyn 3 g every 8 hours for 2 weeks and close outpatient follow-up Time with Patient: Less than 30
[2021-12-24] MEDS: AMPICILLIN-SULBACTAM 3 GM in SODIUM CHLORIDE 0.9% 100 ML IVPB SCH ×2 (00:49→06:25)
[2021-12-24] MEDS: SODIUM CHLORIDE 0.9% 1,000 ML IV SCH (03:59)
[2021-12-24 05:14] LABS: Mycoplasma IgG Antibody (EIA) 2.71 INDEX (<=0.90); Mycoplasma IgM Antibody 0.68 INDEX (<=0.90)
[2021-12-24] MEDS: PANTOPRAZOLE 40 MG TABLET PO SCH (06:25)
[2021-12-24 07:51] VITALS: RESP 16
--- NOTE | 2021-12-24 07:52 | P.DS ---
Providers Date of admission: 12/21/21 01:57 Expected date of discharge: 12/24/21 Attending physician: Marion Delgadillo Consults: 12/20/21 22:07 Consult Physician Routine Consulting Provider: Darrin Godoy Consult Reason/Comments: Necrotizing pneumonia, elevated d-dimer Do you want consulting provider notified?: Yes 12/20/21 22:08 Consult Physician Routine Consulting Provider: Aminata Ndiaye Consult Reason/Comments: Necrotizing pneumonia Do you want consulting provider notified?: Yes Primary care physician: Marion Delgadillo Hospital Course: HISTORY OF PRESENT ILLNESS 12/22: Patient has been seen by infectious disease with recommendations for Unasyn 3 g every 6 hours, sputum culture. Patient was able to provide sputum specimen this morning. Patient is also seen by pulmonary medicine and patient may need repeat CAT scan of the chest within the next 3-4 days, plan to continue IV antibiotics. Patient states that she has a little cough, shortness of breath is improved. She denies having any further fever or chills. She has been ambulating in the hallway frequently and requesting that heparin subcu be discontinued which we will do. D-dimer was elevated but CTA of the chest was negative for pulmonary embolism. Patient is reaching 1500+ on incentive spirometry and doing frequently. She is scheduled for mid line placement today. Patient is mildly tachycardic at 106 and on IV fluids and patient agrees to increase oral fluid intake. Flutter valve and Pulmicort added. Sed rate is 94, rheumatoid factor normal at 13, hCG nondetected. Legionella negative. Pending: NATAN, p-ANCA, mycoplasma, repeat CBC and BMP ordered for tomorrow. 12/23: Patient has remained afebrile greater than 48 hours, heart rate 90-101, blood pressure 118/55, pulse ox 90% on room air. child monitor is sinus rhythm. Sputum culture is in progress. Blood culture no growth at 48 hours 2 specimens. Repeat blood work reveals WBC 11.3, hemoglobin 11.1, platelet count of 169. Electrolytes and renal function are normal. Patient did not have IV access yesterday and multiple attempts were made to obtain midline. Dr. boateng is indicated need for PICC line with outpatient IV antibiotics. Double-lumen PICC line will be ordered now. She is continued on Unasyn. 12/24: Yesterday, PICC line was placed for the patient. She has been afebrile, heart rate 140 114. Blood pressure 110/58, pulse ox 95% on room air. Mycoplasma pneumonia IgG 2.71 and IgM normal at 0.68. NATAN screen is positive. P-ANCA less than 1:20, c-ANCA <1.20. Repeat chest x-ray reveals improved aeration of the left lower lobe airspace disease. Persistent opacities are visualized. Cavitation is better appreciated on CAT scan. Dr. Ndiaye has recommended Unasyn 3 g every 8 hours for 2 weeks outpatient and feels patient is ready for discharge today. Dr. Junior has recommended possible repeat CAT scan of the chest for next week as an outpatient. Patient continues to have slow improvement and is stating that she is having more cough with sputum production. We'll plan to continue nebulizer treatment at home with albuterol. Patient will require nebulizer with albuterol to manage aspiration pneumonia, necrotizing, possibly cavitating pneumonia. multimedia project manager has made arrangements for IV antibiotics. Patient will be discharged home today in stable condition. DISCHARGE DIAGNOSES 1. Acute left lower lobe pneumonia, necrotizing possibly cavitating with early abscess formation in the left lower lobe, aspiration pneumonia. 2. Sepsis secondary to acute left lower lobe pneumonia. 3. History of tonsillectomy 3 weeks ago. 4. Elevated d-dimer. CTA negative for pulmonary embolism. 5. Tachycardia secondary to sepsis. DISCHARGE PLAN Home with [facility] with IV antibiotic. Greater than 35 minutes was utilized and coordinating patient's discharge. Impression and plan of care have been directed as dictated by the signing physician. Lesvia Velazquez nurse practitioner acting as scribe for signing physician. Patient Condition at Discharge: Good Plan - Discharge Summary Discharge Rx Participant: Yes New Discharge Prescriptions: New Ampicillin-Sulbactam [Unasyn] 3 gm IVPB Q8HR #42 each Albuterol Nebulized [Ventolin Nebulized] 2.5 mg INHALATION RT-QID PRN #360 ml PRN Reason: Shortness Of Breath Or Wheezing guaiFENesin [Mucinex] 600 mg PO Q12HR tablet Continue Norgestimate-Ethinyl Estradiol [Sprintec 28 Day Tablet] 1 tab PO HS Discontinued Azithromycin [Zithromax] 500 mg PO DAILY Discharge Medication List Norgestimate-Ethinyl Estradiol [Sprintec 28 Day Tablet] 1 tab PO HS 12/20/21 [History] Albuterol Nebulized [Ventolin Nebulized] 2.5 mg INHALATION RT-QID PRN #360 ml 12/24/21 [Rx] Ampicillin-Sulbactam [Unasyn] 3 gm IVPB Q8HR #42 each 12/24/21 [Rx] guaiFENesin [Mucinex] 600 mg PO Q12HR tablet 12/24/21 [Rx] Follow up Appointment(s)/Referral(s): [facility], [NON-STAFF] - Marion Delgadillo MD [Primary Care Provider] - 1-2 days [facility]Infusion [NON-STAFF] - Discharge Disposition: HOME WITH HOME HEALTH SERVICES
[2021-12-24] MEDS: BUDESONIDE 0.5 MG/2 ML NEBU INHALATION SCH (08:24)
[2021-12-24 09:05] LABS: Basophils # (A) 0.1 k/uL (0-0.2); Basophils % (A) 1 %; Eosinophils # (A) 0.5 k/uL (0-0.7); Eosinophils % (A) 4 %; HGB 11.6 gm/dL (11.4-16.0); Hypochromasia Slight; Lymphocytes # (A) 2.4 k/uL (1.0-4.8); Lymphocytes % (A) 20 %; MCH 26.9 pg (25.0-35.0); MCHC 31.5 g/dL (31.0-37.0); MCV 85.4 fL (80.0-100.0); Mean Platelet Volume 6.6; Monocytes # (A) 0.6 k/uL (0-1.0); Monocytes % (A) 5 %; Neutrophils % (A) 68 %; Platelet Count 609 k/uL (150-450); RBC 4.33 m/uL (3.80-5.40); RDW 12.6 % (11.5-15.5); WBC 11.7 k/uL (3.8-10.6)
[2021-12-24 09:25] LABS: African American GFR (CKD) >90 (>60 ml/min/1.73 sqM); Anion Gap 11 mmol/L; Blood Urea Nitrogen 5 mg/dL (7-17); C Reactive Protein 8.2 mg/dL (<1.0); Calcium 9.1 mg/dL (8.4-10.2); Carbon Dioxide 25 mmol/L (22-30); Chloride 102 mmol/L (98-107); Glucose 114 mg/dL (74-99); Non-African American GFR(CKD) >90 (>60 ml/min/1.73 sqM); Sodium 138 mmol/L (137-145)
[2021-12-24] MEDS: FAMOTIDINE 20 MG TAB PO SCH (09:36)
[2021-12-24] MEDS: guaiFENesin 600 MG TABLET.ER PO SCH (09:37)
--- NOTE | 2021-12-24 10:33 | P.PN ---
Subjective Progress Note Date: 12/24/21 Principal diagnosis: Acute left lower lobe necrotizing pneumonia/lung abscess This is a 21-year-old female patient who is currently admitted for a left lung pneumonia. The patient is healthy. She underwent a tonsillectomy on outpatient basis under the care of Dr. Cortes approximately 3 weeks ago. The patient had recurrent tonsillitis and tonsillar quite enlarged and symptomatic and for that reason the decision was to undergo the tonsillectomy. Surgery was done without any major complications or any reported aspiration. The patient was discharged home. The patient following that, started developing some pain along the left side of the chest/rib cage and the pain was somewhat pleuritic in nature. The patient was given a course of Zithromax on outpatient basis which she finished. Subsequently, condition progressed and she started having more pain and she saw a chiropractor with a seminary ventilation of the rib cage. Patient developed worsening symptoms. She came into the emergency department for further evaluation. Chest x-ray showed a left lower lobe consolidation for that reason a CAT scan of the chest was done that showed an extensive area of consolidation involving the left lower lobe with some central hyperdensity, either cavitation or early abscess formation with some gas. This area is around 54 x 52 x 51 mm in size. Rest of the lungs are essentially clear. No evidence of any pulmonary embolism. The patient was given initially a combination of cefepime/Vancomycin and later patient was switched to Unasyn. She is on room air oxygen. She does have leukocytosis for now and the white cell count is 17.3. Platelet count is 634. D-dimer is 1.52. COVID 19 testing is been negative and the patient has been vaccinated. Reevaluated today on 12/22/21, patient is feeling better, continues to have intermittent cough but no fever, cough is productive with greenish phlegm. Sputum cultures are pending Gram stain is nondiagnostic patient is on Unasyn. She is being followed by infectious disease on the case, and the patient may or may not require a PICC line placement for IV antibiotics on a long-term basis. In the meantime the patient is clinically responding to present treatment. Her last WBC count was 17.3 she had a sed rate of 94 and she had a d-dimer of 1.52. Legionella antigen is negative Reevaluated today on 12/23/21, patient continues to do well, patient is scheduled to have a PICC line placed today. No fever, no shortness of breath, no chest pain, patient continues to have intermittent productive cough. Sputum cultures have been nondiagnostic. WBC count today is 11.3 hemoglobin 11.1 electrolytes are normal. The patient is seen today 12/24/2021 in follow-up on the selective care unit. She is currently sitting up in a chair at the bedside. Awake and alert in no acute distress. She is maintaining good O2 saturations in the 90s on room air. She had a left upper extremity PICC line placed. She is currently on Unasyn. White count 11.7. Hemoglobin 11.6. Sodium 138. Potassium 4.0. BUN 5. Creat inine 0.67. Sputum culture pending. Blood cultures revealing no growth to date. Objective - Vital Signs Vital signs: Vital Signs Temp 98.2 F 12/24/21 07:48 Pulse 122 H 12/24/21 08:36 Resp 16 12/24/21 07:48 BP 100/63 12/24/21 07:48 Pulse Ox 97 12/24/21 07:48 Intake & Output 12/23/21 12/24/21 12/24/21 18:59 06:59 18:59 Intake Total 2415 862 1156 Balance 7225 000 5328 Intake: IV 20 90 Invasive Line 3 20 90 Intake, IV Titration 200 Amount Ampicillin-Sulbactam 3 gm 200 In Sodium Chloride 0.9% 100 ml @ 200 mls/hr IVPB Q6H [facility] Rx#:[id number] Oral [id number] Other: # Voids 1 1 1 - Exam GENERAL EXAM: Alert, active, pleasant 21-year-old female patient, on room air, comfortable in no apparent distress. HEAD: Normocephalic. EYES: Normal reaction of pupils, equal size. NOSE: Clear with pink turbinates. THROAT: No erythema or exudates. NECK: No masses, no JVD. CHEST: No chest wall deformity. LUNGS: Equal air entry with no crackles, wheeze, rhonchi. Diminished in the left lung base CVS: S1 and S2 normal with no audible murmur, regular rhythm. ABDOMEN: No hepatosplenomegaly, normal bowel sounds, no guarding or rigidity. SPINE: No scoliosis or deformity SKIN: No rashes CENTRAL NERVOUS SYSTEM: No focal deficits, tone is normal in all 4 extremities. EXTREMITIES: There is no peripheral edema. No clubbing, no cyanosis. Peripheral pulses are intact. - Labs CBC & Chem 7: 12/24/21 08:04 12/24/21 08:04 Labs: Abnormal Lab Results - Last 24 Hours (Table) 12/21/21 12/21/21 12/24/21 Range/Units 14:57 14:57 08:04 WBC 11.7 H (3.8-10.6) k/uL Plt Count 609 H (150-450) k/uL Neutrophils # 8.0 H (1.3-7.7) k/uL BUN (7-17) mg/dL Glucose (74-99) mg/dL C-Reactive Protein (<1.0) mg/dL NATAN Screen POSITIVE A (NEGATIVE) Mycoplasma pneumon IgG 2.71 H (<=0.90) INDEX 12/24/21 Range/Units 08:04 WBC (3.8-10.6) k/uL Plt Count (150-450) k/uL Neutrophils # (1.3-7.7) k/uL BUN 5 L (7-17) mg/dL Glucose 114 H (74-99) mg/dL C-Reactive Protein 8.2 H (<1.0) mg/dL NATAN Screen (NEGATIVE) Mycoplasma pneumon IgG (<=0.90) INDEX Microbiology - Last 24 Hours (Table) 12/20/21 22:00 Blood Culture - Preliminary Blood No Growth after 72 hours 12/20/21 19:35 Blood Culture - Preliminary Blood No Growth after 72 hours 12/22/21 06:15 Gram Stain - Preliminary Sputum Sputum Culture - Preliminary Assessment and Plan Assessment: 1 Acute/subacute left lower lobe pneumonia, necrotizing possibly cavitating with early abscess formation within the left lower lobe consolidation which is measuring 5 cm in size and its largest dimension. There may be some early gas formation/early abscess formation within the left lower lobe. Highly suggestive of a gram-negative or anaerobic infection. Could be related to perioperative aspiration post tonsillectomy. Unlikely to be community-acquired. Unlikely to be staphylococcal or any other atypical microorganism. 2 Acute leukocytosis secondary to above, improving 3 Acute pleuritic chest pain secondary to above, improved 4 Shortness of breath secondary to above, recovered and on room air 5 History of tonsillectomy performed approximately 3 weeks ago Plan: The patient was seen and evaluated Chest x-ray showing improved aeration of left lower lobe White count stable at 11.7 Currently on room air Plan is for Unasyn every 8 hours for 2 weeks Follow-up CAT scan in approximately 1 week Follow-up in the office in one to two-week I have personally seen and examined the patient, performed the documentation and the assessment and plan as written. Number of minutes spent on the visit: 10.
[2021-12-24 11:27] VITALS: BP 109/63; PULSE 87; TEMP 97.5
--- NOTE | 2021-12-26 11:05 | P.HPIM ---
History of Present Illness H&P Date: 12/21/21 Chief Complaint: Necrotizing pneumonia HISTORY OF PRESENT ILLNESS: This is a 21-year-old female with no previous medical history relatively healthy level of to have a significant and recurrent tonsillitis ended up to have tonsillectomy that was done by Dr. Cortes about 3 and half weeks ago, patient was doing fine up until a week ago when developed to have significant pain in the left side of her ribs she thought that her rib is out, she went to her chiropractor and she felt better, patient was sent by her JoMaJa to [employer] for a work trip, and she was talking to her mother on the phone and she was complaining of increased shortness of breath and increased coughing without any significant phlegm production, patient ended up coming back home last Wednesday was supposed to go back on Wednesday, however the patient developed to have a significant coughing and increased shortness breath, she had a video called with Dr. Cortes and she was prescribed erythromycin, patient did not get better she ended up coming to the emergency department yes terday at [facility] she was found to have a significant leukocytosis, and because of the shortness of breath and elevated d-dimer she ended up going for CT angiography of the chest that was negative for pulmonary embolism however did show significant pneumonia with cavitation the left lower lobe suggestive of necrotizing pneumonia. She was started on IV antibiotic in the form of vancomy celsa as well as cefepime and she was seen in consultation by pulmonary medicine as well as by infectious disease, she was switched to Unasyn 3 g IV piggyback every 6 hours to rule out any significant aspiration sputum culture will be obtained, also will check mycoplasma antibodies IgG and IgM and legionella antigen in the urine. REVIEW OF SYSTEMS: Constitutional: No documented fever, no chills, no night sweats. No weight change. positive for weakness, fatigue or lethargy. No daytime sleepiness. HEENT: No headache. No blurred vision or double vision, no loss of vision. No loss of Hearing, no ringing in the ears, no dizziness. No nasal drainage or congestion. No epistaxis. No sore throat. Lungs: positive for shortness of breath, positive for dry cough, minimal sputum production. No wheezing. Reports dyspnea with activity. Cardiovascular: No chest pain, no lower extremity edema. No palpitations. No paroxysmal nocturnal dyspnea. No orthopnea. No lightheadedness or dizziness. No syncopal episodes. Abdominal: Reports abdominal pain. No nausea, vomiting. No diarrhea. No constipation. No bloody or tarry stools reports loss of appetite. Genitourinary: No dysuria, increased frequency, urgency. No urinary retention. Musculoskeletal: No myalgias. No muscle weakness, no gait dysfunction, no frequent falls. No back pain. No neck pain. Integumentary: No wounds, no lesions. No rash or pruritus. No unusual bruising. No change in hair or nails. Neurologic: No aphasia. No facial droop. No change in mentation. No head injury. No headache. No paralysis. No paresthesia. Psychiatric: No depression. No anxiety. No mood swings. Endocrine: No abnormal blood sugars. No weight change. PAST MEDICAL HISTORY: None. PAST SURGICAL HISTORY: Tonsillectomy SOCIAL HISTORY: Patient. He has a history of smoking she is a lifelong nonsmoker, she drinks occasionally, she denies any drug use or abuse, she currently works for [employer]. FAMILY HISTORY: Father is alive at age 50 with history of atrial fibrillation and ablation. Mother is alive at age 50 with no major medical problems. Patient has one brother next 24 years of age and healthy. She does not have any sisters and she does not have any children. PHYSICAL EXAMINATION: General: 21-year-old female laying down in bed in no acute respiratory distress. HEENT: Head is atraumatic, normocephalic, pupils were equal round reactive to light and recommendation, extraocular muscle movement were intact, sclera nonicteric, conjunctivae were pale, mucous membranes of the mouth are somewhat dry. Neck: Supple, no JVP, normal carotid upstroke bilaterally, no lymphadenopathy. Chest: Decreased breath sounds at the bases, minimal egophony to the left lower base, no chest wall tenderness or intercostal retractions. Heart: First heart sound is normal, second heart sounds normal there is no gallop or murmur. Abdomen: Soft, nontender, nondistended, positive bowel sounds. Extremities: There is no edema no calf tenderness DP +2 bilaterally. Neurologic examination: Patient is awake alert and oriented X 3, cranial nerves II-12 appear grossly intact, muscle power were 5 out of 5 in upper extremities and 5 out of 5 in bilateral lower extremities, deep tendon reflexes normal bilaterally. ASSESSMENT AND PLAN: 1. Left lower lobe pneumonia with cavitation suggestive of necrotizing pn eumonia. Patient was taken off the question as well as cefepime she was started on Unasyn 3 g IV piggyback every 6 hours, start the patient on Mucinex 6 or milligram orally twice every day, start the patient on albuterol 2.5 mg nebulization 4 times every day, patient does not need any oxygen at this time, chest x-ray as well as CTA of the chest were reviewed, patient was seen earlier by pulmonary medicine as well as ID we'll check Legionella urine antigen we'll check mycoplasma antibody IgG and IgM. 2. Leukocytosis likely related to necrotizing pneumonia. Continue treatment as in paragraph #1. 3. DVT prophylaxis. Heparin 5000 units subcutaneously every 12 hours and bilateral knee-high ARIANA hose. 4. GI prophylaxis. Continue patient on Pepcid 20 mg orally once every day. 5. insomnia. Start the patient on melatonin 3 mg at bedtime. 6. Admit to inpatient. Estimate a length of stay 2 midnights. 7. Full code. Past Medical History Past Medical History: Asthma, Hyperlipidemia History of Any Multi-Drug Resistant Organisms: None Reported Past Surgical History: Tonsillectomy Additional Past Surgical History / Comment(s): Tonsillectomy 11/27/21 Past Anesthesia/Blood Transfusion Reactions: No Reported Reaction Past Psychological History: No Psychological Hx Reported Smoking Status: Never smoker Past Alcohol Use History: Occasional Past Drug Use History: None Reported - Past Family History Mother Additional Family Medical History / Comment(s): Family history of hyperlipid emia. Father Additional Family Medical History / Comment(s): No pertinent history Medications and Allergies Home Medications Medication Instructions Recorded Confirmed Type Norgestimate-Ethinyl Estradiol 1 tab PO HS 12/20/21 12/20/21 History [Sprintec 28 Day Tablet] Albuterol Nebulized [Ventolin 2.5 mg INHALATION RT-QID PRN #360 12/24/21 Rx Nebulized] ml Ampicillin-Sulbactam [Unasyn] 3 gm IVPB Q8HR #42 each 12/24/21 Rx guaiFENesin [Mucinex] 600 mg PO Q12HR tablet 12/24/21 Rx Allergies Allergy/AdvReac Type Severity Reaction Status Date / Time No Known Allergies Allergy Verified 12/20/21 20:26 Physical Exam Vitals: Vital Signs Temp Pulse Pulse Resp BP BP Pulse Ox 12/21/21 08:00 98.6 F 87 16 121/81 97 12/21/21 04:18 98 12/21/21 03:41 97.7 F 98 18 127/87 97 12/21/21 02:29 98.9 F 95 18 123/76 99 12/20/21 23:14 93 16 125/73 99 12/20/21 21:24 96 100 12/20/21 20:28 99.3 F 107 H 20 114/76 12/20/21 18:44 103.2 F H 142 H 22 143/73 96 Intake and Output 12/20/21 12/21/21 12/21/21 22:59 06:59 14:59 Other: Voiding Method Toilet # Voids 1 Weight 56.699 kg 57.6 kg Results CBC & Chem 7: 12/24/21 08:04 12/24/21 08:04 Labs: Abnormal Lab Results - Last 24 Hours (Table) 12/20/21 12/20/21 12/20/21 Range/Units 19:45 19:45 19:45 WBC 17.3 H (3.8-10.6) k/uL Plt Count 634 H (150-450) k/uL Neutrophils # 13.9 H (1.3-7.7) k/uL D-Dimer 1.52 H (<0.60) mg/L FEU ALT 63 H (4-34) U/L Thrombosis Risk Factor Assmnt - Choose All That Apply Any of the Below Risk Factors Present?: No Other Risk Factors: No Other congenital or acquired thrombophilia - If yes, enter type in comment: No Thrombosis Risk Factor Assessment Level: Very Low Risk
== END 2021-12-24 12:56 | disposition home health service (06) | DRG 871 ==
LOC: EC 18:15 → 3SCARD 12-21 01:57
PROVIDERS: ADMIT Internal Medicine; ATTEND Internal Medicine
PROC: 05H933Z Insertion of Infusion Device into Right Brachial Vein, Percutaneous Approach (ICD-10-PCS; 2021-12-22)
PROC: B548ZZA Ultrasonography of Superior Vena Cava, Guidance (ICD-10-PCS; 2021-12-23)
PROC: B5181ZA Fluoroscopy of Superior Vena Cava using Low Osmolar Contrast, Guidance (ICD-10-PCS; 2021-12-23)
PROC: 02HV33Z Insertion of Infusion Device into Superior Vena Cava, Percutaneous Approach (ICD-10-PCS; principal; 2021-12-23 18:55)
DX: A41.9 Sepsis, unspecified organism (principal); J85.1 Abscess of lung with pneumonia; J85.0 Gangrene and necrosis of lung; J69.0 Pneumonitis due to inhalation of food and vomit; R79.89 Other specified abnormal findings of blood chemistry; Z20.822 Contact with and (suspected) exposure to COVID-19; E78.5 Hyperlipidemia, unspecified; G47.00 Insomnia, unspecified; J03.91 Acute recurrent tonsillitis, unspecified; J45.909 Unspecified asthma, uncomplicated; Z79.2 Long term (current) use of antibiotics; Z87.891 Personal history of nicotine dependence
CPT/HCPCS: 36415; 36573; 71046; 71275; 80048; 80053; 81025; 83605; 83735; 84145; 85025; 85027; 85379; 85652; 86038; 86039; 86140; 86255; 86431; 86738; 87040; 87070; 87205; 87449; 87635; 93005; 94640; 96361; 96365; 96366; 96367; 99285